=== PATIENT | female | born 1985 | race Caucasian/White ===

== ENCOUNTER 2017-01-20 14:17 | Emergency (ER) | payer MEDICAID, OTHER ==
[~2017-01-20] VITALS: Ht 160 cm; Wt 109.8 kg
[2017-01-20 14:19] VITALS: BP 148/89
--- NOTE | 2017-01-20 15:58 | NUR ---
Patient ambulated to bed 4 with family. RN evaluating patient at bedside.
--- NOTE | 2017-01-20 16:01 | NUR ---
31/F BIB FAMILY C/O RIGHT INDEX FINGER LACERATION x TODAY @ 1415. DENIES N/V/D; SKIN IS PINK/WARM/DRY; AAOX4 WITH EVEN AND STEADY GAIT; LUNGS CLEAR BL; HR EVEN AND REGULAR; PT DENIES ANY FEVER, CP, SOB, OR COUGH AT THIS TIME; PATIENT STATES PAIN OF 6/10 AT THIS TIME; VSS; PATIENT POSITIONED FOR COMFORT; HOB ELEVATED; BEDRAILS UP X2; BED DOWN. ER MD MADE AWARE OF PT STATUS.
[2017-01-20] MEDS ORDERED: NEOMYCIN/POLYMYXIN/BACITRACIN 0.9 GM/1 PKT TP ONE (16:49)
[2017-01-20 17:04] VITALS: BP 148/89
== END 2017-01-20 17:04 | disposition home or self-care (01) ==
LOC: MED 14:17
DX: S61.211A Laceration without foreign body of left index finger without damage to nail, initial encounter (principal); W45.8XXA Other foreign body or object entering through skin, initial encounter; Y93.G9 Activity, other involving cooking and grilling; Y92.89 Other specified places as the place of occurrence of the external cause; Y99.8 Other external cause status
CPT/HCPCS: 12001; 99283

== ENCOUNTER 2017-07-27 11:26 | Emergency (ER) | payer OTHER ==
[~2017-07-27] VITALS: Ht 165.1 cm; Wt 100.2 kg
[2017-07-27 11:42] VITALS: BP 136/77
--- NOTE | 2017-07-27 11:52 | NUR ---
PATIENT PRESENTS TO ED WITH c/o left 2nd/3rd digit injury s/p attempting to break fall by grabbing on rail before falling ;last night;swelling , discoloration, tenderness;skin intact, +2 radial pulse <3 sec cap refill;DENIES ANY MEDICAL HX;DENIES N/V/D; SKIN IS PINK/WARM/DRY; AAOX4 WITH EVEN AND STEADY GAIT; LUNGS CLEAR BL; HR EVEN AND REGULAR; PT DENIES ANY FEVER, CP, SOB, OR COUGH AT THIS TIME; PATIENT STATES PAIN OF 7/10 AT THIS TIME;PATIENT POSITIONED FOR COMFORT; HOB ELEVATED; BEDRAILS UP X2; BED DOWN. ER MD MADE AWARE OF PT STATUS.
--- NOTE | 2017-07-27 11:57 | NUR ---
DR POP EVALUATING PT
--- NOTE | 2017-07-27 12:36 | NUR ---
pt sitting on chair;no acute distress noted;will continue to monitor pt.
[2017-07-27 12:51] VITALS: BP 125/81
--- NOTE | 2017-07-27 12:51 | NUR ---
Patient discharged with v/s stable. Written and verbal after care instructions given and explained. Patient alert, oriented and verbalized understanding of instructions. Ambulatory with . All questions addressed prior to discharge. ID band removed. Patient advised to follow up with PMD. Rx of naproxen given. Patient educated on indication of medication including possible reaction and side effects. Opportunity to ask questions provided and answered.
== END 2017-07-27 12:51 | disposition home or self-care (01) ==
LOC: MED 11:26
DX: S63.91XA Sprain of unspecified part of right wrist and hand, initial encounter (principal); Z88.8 Allergy status to other drugs, medicaments and biological substances; W19.XXXA Unspecified fall, initial encounter; Y93.89 Activity, other specified; Y92.89 Other specified places as the place of occurrence of the external cause; Y99.8 Other external cause status
CPT/HCPCS: 73130; 99284

== ENCOUNTER 2017-11-04 15:01 | Emergency (ER) | payer OTHER ==
[~2017-11-04] VITALS: Ht 162.6 cm; Wt 95.5 kg
[2017-11-04 15:23] VITALS: BP 149/100
[2017-11-04] MEDS ORDERED: traMADol 50 MG TAB PO ONE (15:45)
[2017-11-04] MEDS ORDERED: KETOROLAC 30 MG/ML VIAL IM ONE (17:10)
[2017-11-04] MEDS ORDERED: HYDROcodone/APAP 5/325 MG 1 TAB TAB PO ONE (17:10)
[2017-11-04 18:35] VITALS: BP 145/97
== END 2017-11-04 18:37 | disposition home or self-care (01) ==
LOC: MED 15:01 → CANBEDREQ 16:02 → MED 18:37
DX: M54.5 Low back pain (principal); Z88.8 Allergy status to other drugs, medicaments and biological substances
CPT/HCPCS: 72110; 96372; 99284; J1885; 81002; 81025

== ENCOUNTER 2017-11-17 11:55 | Emergency (ER) | payer OTHER ==
[~2017-11-17] VITALS: Ht 165.1 cm; Wt 92.5 kg
[2017-11-17 12:23] VITALS: BP 140/79
[2017-11-17] MEDS ORDERED: methylPREDNISolone SS 125 MG in WATER STERILE 2 ML IV ONE (13:15)
[2017-11-17] MEDS ORDERED: ONDANSETRON 4 MG/2 ML VIAL IVP ONE (13:15)
[2017-11-17] MEDS ORDERED: MORPHINE SULFATE 4 MG/ML SYR IVP ONE ×2 (13:15→17:00)
[2017-11-17] MEDS ORDERED: methylPREDNISolone SS 125 MG/2 ML VIAL ONE (13:21)
[2017-11-17 13:50] LABS: BASOPHILS # (AUTO) 0.2 K/uL (0.00-0.22); BASOPHILS % (AUTO) 1.5 % (0.0-2.0); EOSINOPHILS # (AUTO) 0.2 K/uL (0-0.4); EOSINOPHILS % (AUTO) 1.4 % (0.0-4.0); HEMATOCRIT 35.7 % (36-48); LYMPHOCYTES # (AUTO) 4.5 K/uL (2.5-16.5); LYMPHOCYTES % (AUTO) 33.5 % (20.5-51.1); MEAN CORPUSCULAR HEMOGLOBIN 27 pg (27-31); MEAN CORPUSCULAR HGB CONC 34 g/dL (33-37); MEAN CORPUSCULAR VOLUME 80.8 fL (80-94); MONOCYTES % (AUTO) 7.3 % (1.7-9.3); NEUTROPHILS # (AUTO) 7.6 K/uL (1.8-7.7); NEUTROPHILS % (AUTO) 56.3 % (42.2-75.2); PLATELET COUNT (AUTO) 458 K/uL (140-450); RED BLOOD CELL COUNT(AUTO) 4.42 MIL/uL (4.20-5.40); WHITE BLOOD COUNT (AUTO) 13.5 K/uL (4.8-10.8)
[2017-11-17 14:03] LABS: PROTHROMBIN TIME 10.5 secs (10.8-13.4)
[2017-11-17 14:09] LABS: APPEARANCE,URINE CLEAR (CLEAR); BILIRUBIN,URINE NEGATIVE (NEGATIVE); BLOOD, URINE NEGATIVE (NEGATIVE); COLOR,URINE YELLOW (YELLOW); LEUKOCYTE ESTERASE ,URINE NEGATIVE (NEGATIVE); NITRITE, URINE NEGATIVE (NEGATIVE); PH,URINE 6.5 (5.0-9.0); UGLUCOSE NEGATIVE (NEGATIVE)
[2017-11-17 14:11] LABS: ALBUMIN 3.8 g/dL (3.4-5.0); ANION GAP 13.9 (8-16); CARBON DIOXIDE 27.5 mmol/L (21-32); CREATININE 0.8 mg/dL (0.6-1.3); POTASSIUM 3.4 mmol/L (3.5-5.1); TOTAL BILIRUBIN 0.5 mg/dL (0.0-1.0)
[2017-11-17] MEDS ORDERED: POTASSIUM CHLORIDE 10 MEQ TABER PO ONE (16:30)
[2017-11-17 18:30] VITALS: BP 108/73
== END 2017-11-17 18:30 | disposition short-term general hospital (02) ==
LOC: MED 11:55
DX: M54.12 Radiculopathy, cervical region (principal); M54.16 Radiculopathy, lumbar region; Z88.8 Allergy status to other drugs, medicaments and biological substances
CPT/HCPCS: 36415; 80053; 81003; 81025; 82550; 83605; 85025; 85610; 85651; 86140; 87040; 96374; 96375; 96376; 99285; J2270; J2405; J2930

== ENCOUNTER 2018-07-04 22:01 | Emergency (ER) | payer OTHER ==
[~2018-07-04] VITALS: Ht 162.6 cm; Wt 83.9 kg
[2018-07-04 22:02] VITALS: BP 156/91
--- NOTE | 2018-07-04 22:07 | NUR ---
PT AMBULATORY TO ER LOBBY W/ STEADY GAIT IN STABLE CONDITION.
--- NOTE | 2018-07-04 22:24 | NUR ---
PT RETURN FROM RAD TO ER ADINABY
--- NOTE | 2018-07-04 22:45 | NUR ---
PATIENT BIB W/C TO ER BED 2.
--- NOTE | 2018-07-04 22:48 | NUR ---
PT IS A 33 Y/O FEMALE WHO PRESENTS TO THE ED S/P FALL. PT STATES THAT IT HAPPENED THIS AMD AND REPORTS L ARM AND L KNEE PAIN. PT DENIES LOC, REPORTS 8/10 ACHING L ARM AND L KNEE PAIN. NO OBVIOUS TRAUMA OR DEFORMITY. PT AWAKE AND ALERT, RR EVEN/UNLABORED. PT REPOSITIONED FOR COMFORT, BED IN LOWEST POSITION. ER MD DR. PAPPAS NOTIFIED. WILL CONTINUE TO MONITOR.
[2018-07-04] MEDS ORDERED: HYDROcodone/APAP 5/325 MG 1 TAB TAB PO ONE (23:30)
[2018-07-04] MEDS ORDERED: KETOROLAC 30 MG/ML VIAL IM ONE (23:30)
--- NOTE | 2018-07-05 | NUR ---
PATIENT RESTING AT THIS TIME. NO SIGNS OF DISTRESS.
[2018-07-05 01:35] VITALS: BP 162/85
--- NOTE | 2018-07-05 01:35 | NUR ---
Patient discharged with v/s stable. Written and verbal after care instructions given and explained. Patient alert, oriented and verbalized understanding of instructions. Ambulatory with steady gait. All questions addressed prior to discharge. ID band removed. Patient advised to follow up with PMD. Rx of NAPROSYN 500MG AND NORCO 5MG-325MG given. Patient educated on indication of medication including possible reaction and side effects. Opportunity to ask questions provided and answered.
== END 2018-07-05 01:35 | disposition home or self-care (01) ==
LOC: MED 22:01
DX: S63.502A Unspecified sprain of left wrist, initial encounter (principal); S80.02XA Contusion of left knee, initial encounter; M25.561 Pain in right knee; Z88.8 Allergy status to other drugs, medicaments and biological substances; W18.09XA Striking against other object with subsequent fall, initial encounter; Y93.89 Activity, other specified; Y92.89 Other specified places as the place of occurrence of the external cause; Y99.8 Other external cause status
CPT/HCPCS: 29125; 73130; 73562; 96372; 99283; J1885; Q0092

== ENCOUNTER 2018-07-16 21:21 | Emergency (ER) | payer OTHER ==
[~2018-07-16] VITALS: Ht 165.1 cm; Wt 81.6 kg
[2018-07-16 21:34] VITALS: BP 128/88
--- NOTE | 2018-07-16 21:34 | NUR ---
PT PRESENTS TO ED WITH RUQ ABD PAIN RADIATING TO LOWER BACK WITH N/V/D X4 DAYS. 05/13 PAIN. PT STATES FEELING BLOATED. X4 QUADRANT BOWEL SOUNDS PRESENT. A&OX4. VSS. POSITIONED IN BED FOR COMFORT. PT DESNIES PAST MEDICAL HX. ER MD AWARE. CONTINUE TO MONITOR.
--- NOTE | 2018-07-16 21:34 | NUR ---
TO BED # 1 AMB, REPORT GIVEN TO OSCAR SAAVEDRA
--- NOTE | 2018-07-16 21:58 | NUR ---
Dr. Shen evaluating patient at bedside.
[2018-07-16] MEDS ORDERED: KETOROLAC 30 MG/ML VIAL IVP ONE (22:00)
[2018-07-16] MEDS ORDERED: ONDANSETRON 4 MG/2 ML VIAL IVP ONE (22:00)
[2018-07-16] MEDS ORDERED: NACL 0.9% 1,000 ML IV SCH (22:00)
[2018-07-16 22:26] LABS: BASOPHILS % (AUTO) 0.4 % (0.0-2.0); EOSINOPHILS # (AUTO) 0.2 K/uL (0-0.4); EOSINOPHILS % (AUTO) 1.5 % (0.0-4.0); HEMATOCRIT 36.9 % (36-48); LYMPHOCYTES # (AUTO) 4.1 K/uL (2.5-16.5); LYMPHOCYTES % (AUTO) 40.3 % (20.5-51.1); MEAN CORPUSCULAR HEMOGLOBIN 27 pg (27-31); MEAN CORPUSCULAR HGB CONC 33 g/dL (33-37); MEAN CORPUSCULAR VOLUME 82.3 fL (80-94); MONOCYTES # (AUTO) 1.2 K/uL (0.8-1.0); MONOCYTES % (AUTO) 12.3 % (1.7-9.3); NEUTROPHILS # (AUTO) 4.6 K/uL (1.8-7.7); NEUTROPHILS % (AUTO) 45.5 % (42.2-75.2); PLATELET COUNT (AUTO) 362 K/uL (140-450); RED BLOOD CELL COUNT(AUTO) 4.48 MIL/uL (4.20-5.40); RED CELL DISTRIBUTION WIDTH 13.9 % (11.6-13.7); WHITE BLOOD COUNT (AUTO) 10.2 K/uL (4.8-10.8)
[2018-07-16 22:33] LABS: ANION GAP 13.9 (8-16); CARBON DIOXIDE 25.3 mmol/L (21-32); CREATININE 0.7 mg/dL (0.6-1.3); POTASSIUM 3.2 mmol/L (3.5-5.1)
[2018-07-16 22:38] LABS: APPEARANCE,URINE SL CLOUDY (CLEAR); BILIRUBIN,URINE NEGATIVE (NEGATIVE); BLOOD, URINE TRACE-L (NEGATIVE); COLOR,URINE YELLOW (YELLOW); LEUKOCYTE ESTERASE ,URINE NEGATIVE (NEGATIVE); NITRITE, URINE NEGATIVE (NEGATIVE); UGLUCOSE NEGATIVE (NEGATIVE)
[2018-07-16 22:39] LABS: CALCIUM OXALATE CRYSTALS,UR 30-50 /HPF (None Seen); RBC,URINE 0-5 (RARE) /HPF (0-5); WBC,URINE 0-5 (RARE) /HPF (0-5)
[2018-07-16 22:39] LABS: ALBUMIN 2.9 g/dL (3.4-5.0); TOTAL BILIRUBIN 0.1 mg/dL (0.0-1.0)
[2018-07-16] MEDS ORDERED: MORPHINE SULFATE 4 MG/ML SYR IVP ONE (23:20)
[2018-07-16 23:56] VITALS: BP 132/76
--- NOTE | 2018-07-16 23:56 | NUR ---
Patient discharged with v/s stable. Written and verbal after care instructions given and explained. Patient alert, oriented and verbalized understanding of instructions. Ambulatory with steady gait. All questions addressed prior to discharge. ID band removed. Patient advised to follow up with PMD. Rx of Zofran, Dahlgren, and Motrin given. Patient educated on indication of medication including possible reaction and side effects. Opportunity to ask questions provided and answered.
== END 2018-07-16 23:56 | disposition home or self-care (01) ==
LOC: MED 21:21
DX: K80.20 Calculus of gallbladder without cholecystitis without obstruction (principal); Z88.8 Allergy status to other drugs, medicaments and biological substances
CPT/HCPCS: 36415; 76705; 80053; 81001; 81025; 83690; 85025; 87086; 96361; 96374; 96375; 99284; J1885; J2270; J2405; Q0092

== ENCOUNTER 2019-03-08 21:52 | Emergency (ER) | payer OTHER ==
[~2019-03-08] VITALS: Ht 162.6 cm; Wt 90.7 kg
[2019-03-08 22:15] VITALS: BP 143/65
--- NOTE | 2019-03-08 22:25 | NUR ---
33/F CC L SIDED NUMBNESS. ALLERGIES CARISOPRADOL. HX DM, FIBROMIALGIA, RA, SCIATICA. AOX4. ABLE TO VERBALIZE NEEDS. BED IN LOWEST POSITION. WILL CONTINUE TO OBSERVE.
--- NOTE | 2019-03-08 22:25 | NUR ---
PT TAKEN TO BED 4 VIA WC.
--- NOTE | 2019-03-08 22:26 | NUR ---
PT TAKEN TO BED 4
[2019-03-08] MEDS ORDERED: NACL 0.9% 1,000 ML IV ONE (22:35)
[2019-03-08] MEDS ORDERED: LORazepam 2 MG/ML VIAL IVP ONE (22:35)
[2019-03-08 23:01] LABS: ANION GAP 14.6 (8-16); BASOPHILS # (AUTO) 0.1 K/uL (0.00-0.22); CARBON DIOXIDE 27.2 mmol/L (21-32); EOSINOPHILS # (AUTO) 0.1 K/uL (0-0.4); EOSINOPHILS % (AUTO) 0.4 % (0.0-4.0); HEMATOCRIT 35.7 % (36-48); HEMOGLOBIN 11.7 g/dL (12.0-16.0); LYMPHOCYTES # (AUTO) 4.8 K/uL (2.5-16.5); LYMPHOCYTES % (AUTO) 38.8 % (20.5-51.1); MEAN CORPUSCULAR HEMOGLOBIN 27 pg (27-31); MEAN CORPUSCULAR HGB CONC 33 g/dL (33-37); MEAN CORPUSCULAR VOLUME 81.1 fL (80-94); MONOCYTES # (AUTO) 1.3 K/uL (0.8-1.0); MONOCYTES % (AUTO) 10.8 % (1.7-9.3); PLATELET COUNT (AUTO) 435 K/uL (140-450); POTASSIUM 3.8 mmol/L (3.5-5.1); RED CELL DISTRIBUTION WIDTH 15.3 % (11.6-13.7); WHITE BLOOD COUNT (AUTO) 12.3 K/uL (4.8-10.8)
[2019-03-08 23:07] LABS: ALBUMIN 4.1 g/dL (3.4-5.0); TOTAL BILIRUBIN 0.7 mg/dL (0.0-1.0)
--- NOTE | 2019-03-09 00:10 | NUR ---
COVERING PRIMARY RN FOR LUNCH RELIEF. ASSUMED TEMPORARY CARE OF PT.
--- NOTE | 2019-03-09 00:11 | NUR ---
SPOKE WITH SISTER, NISA. INFORMED HER THAT PT WAS READY FOR DC. ETA 10 MINS.
--- NOTE | 2019-03-09 00:35 | NUR ---
Patient discharged with v/s stable. Written and verbal after care instructions given and explained. Patient alert, oriented and verbalized understanding of instructions.W/C ASSIST TO CAR WITH NISA (SISTER) All questions addressed prior to discharge. ID band removed. Patient advised to follow up with PMD. Rx of XANAX given. Patient educated on indication of medication including possible reaction and side effects. Opportunity to ask questions provided and answered.
[2019-03-09 00:36] VITALS: BP 143/65
== END 2019-03-09 00:35 | disposition home or self-care (01) ==
LOC: MED 21:52
DX: R06.4 Hyperventilation (principal); Z88.6 Allergy status to analgesic agent
CPT/HCPCS: 36415; 80053; 85025; 96374; 99283; J2060; J7030

== ENCOUNTER 2019-06-11 19:50 | Emergency (ER) | payer OTHER ==
[~2019-06-11] VITALS: Ht 162.6 cm; Wt 81.2 kg
[2019-06-11 19:55] VITALS: BP 144/88
--- NOTE | 2019-06-11 19:57 | NUR ---
TO LOBBY A/W BED AMBULATORY
--- NOTE | 2019-06-11 21:52 | NUR ---
PT AMBULATED TO BED 11
[2019-06-11] MEDS ORDERED: BACITRACIN OINT 500 UNITS/GM PKT TP ONE (22:45)
[2019-06-11] MEDS ORDERED: KETOROLAC 30 MG/ML VIAL IM ONE (22:45)
[2019-06-11] MEDS ORDERED: DIAZEPAM 5 MG TAB PO ONE (22:45)
--- NOTE | 2019-06-11 22:51 | NUR ---
SOAKED LEFT TOE IN WARM WATER AND BETADYIN
--- NOTE | 2019-06-11 23:36 | NUR ---
APPLIED BACITRACIN AND BANDAID TO LEFT GREATER TOE
--- NOTE | 2019-06-11 23:39 | NUR ---
APPLIED ORTHO SHOE TO LEFT FOOT, SHOE WAS SIZED AND CSM WAS CHECKED BEFORE AND AFTER FITTIED, SHOE SIZE WOMENS LARGE
--- NOTE | 2019-06-11 23:40 | NUR ---
PT GIVEN PROPER INSTRUCTIONS ON USE OF CRUTCHES. PT CRUTCHES FITTED TO PT HT AND ARM LENGTH, WITH 2INCH SPACE UNDER ARMPITS AND HANDLES LOCATED AT PT WRISTS AT REST. PT GIVEN INSTRUCTIONS ON MOVING WITH CRUTCHES, INCLUDING SITTING/STANDING, ASCENDING/DESCENDING STAIRS AND WALKING. PT DEMONSTRATING SAFE USE FOR APX. 40 FT, PT STATED SHE FELT COMFORTABLE WITH USE.
[2019-06-11 23:45] VITALS: BP 144/88
--- NOTE | 2019-06-11 23:45 | NUR ---
PT DISCHARGED WITH PAPERWORK. RX JOSE CONNELLY. EDUCATED PT REGARDING MEDICATIONS AND S/E. EDUCATED PT REGARDING D/C DIAGNOSIS AND INSTRUCTIONS. PT VERBALIZED UNDERSTANDING OF TEACHING. PROVIDED PT WITH CRUTCHES; HARSHIL YA EDUCATED PT REGARDING USE OF CRUTCHES. TOLD PT TO FOLLOW UP WITH PCP AND WHEN TO RETURN TO ED. PT VSS. ALL QUESTIONS ANSWERED.
--- NOTE | 2019-06-12 00:10 | NUR ---
Janay leon in [facility] - 06/12/19 at 0013 by JENNYFER APPLIED ORTHO SHOE TO LEFT FOOT, SHOE WAS SIZED AND CSM WAS CHECKED BEFORE AND AFTER FITTIED, SHOE SIZE WOMENS LARGE
== END 2019-06-11 23:45 | disposition home or self-care (01) ==
LOC: MED 19:50
DX: S92.425A Nondisplaced fracture of distal phalanx of left great toe, initial encounter for closed fracture (principal); S39.012A Strain of muscle, fascia and tendon of lower back, initial encounter; E11.9 Type 2 diabetes mellitus without complications; Z98.890 Other specified postprocedural states; Z88.6 Allergy status to analgesic agent; W01.0XXA Fall on same level from slipping, tripping and stumbling without subsequent striking against object, initial encounter; Y93.89 Activity, other specified; Y92.89 Other specified places as the place of occurrence of the external cause; Y99.8 Other external cause status
CPT/HCPCS: 73610; 73630; 73660; 96372; 99283; J1885; Q0092

== ENCOUNTER 2019-09-07 18:51 | Emergency (ER) | payer OTHER ==
[~2019-09-07] VITALS: Ht 167.6 cm; Wt 96.6 kg
[2019-09-07 19:03] VITALS: BP 147/88
--- NOTE | 2019-09-07 19:19 | NUR ---
PT C/O LEFT ANKLE PAIN AFTER STEPPING IN DITCH. PT STATES SHE FELT A "POP" IN THE BACK OF HER ANKLE. PT CURRENTLY SITTING IN WHEELCHAIR. PT ABLE TO MOVE TOES, PULSE INTACT, SENSORY INTACT AND COLOR NORMAL. NO SWELLING NOTED. X-RAY AT BEDSIDE. WAITING FOR PROVIDER TO SEE PT. DENIES N/V/D; SKIN IS PINK/WARM/DRY; AAOX4; LUNGS CLEAR BL; HR EVEN AND REGULAR; PT DENIES ANY FEVER, CP, SOB, OR COUGH AT THIS TIME; PATIENT STATES PAIN OF 10/10 AT THIS TIME; VSS; PATIENT POSITIONED FOR COMFORT; PT IN WHEELCHAIR ER MD MADE AWARE OF PT STATUS.
--- NOTE | 2019-09-07 20:01 | NUR ---
Patient discharged with v/s stable. Written and verbal after care instructions given and explained. Patient alert, oriented and verbalized understanding of instructions. Wheel Chair Assisted with to car. All questions addressed prior to discharge. ID band removed. Patient advised to follow up with PMD. Rx of MOTRIN given. Patient educated on indication of medication including possible reaction and side effects. Opportunity to ask questions provided and answered.
[2019-09-07 20:02] VITALS: BP 134/67
== END 2019-09-07 20:01 | disposition home or self-care (01) ==
LOC: MED 18:51
DX: S93.402A Sprain of unspecified ligament of left ankle, initial encounter (principal); E11.9 Type 2 diabetes mellitus without complications; Z88.8 Allergy status to other drugs, medicaments and biological substances; X58.XXXA Exposure to other specified factors, initial encounter; Y93.89 Activity, other specified; Y92.89 Other specified places as the place of occurrence of the external cause; Y99.8 Other external cause status
CPT/HCPCS: 73610; 99283; Q0092

== ENCOUNTER 2020-08-13 15:34 | Emergency (ER) | payer OTHER ==
[~2020-08-13] VITALS: Ht 162.6 cm; Wt 94.8 kg
[2020-08-13 16:28] VITALS: BP 130/87
[2020-08-13 16:39] VITALS: BP 130/87
--- NOTE | 2020-08-13 16:39 | NUR ---
PATIENT LEFT WITHOUT BEING SEEN BY DR. LEDEZMA. NO FURTHER CARE PROVIDED FOR PATIENT.
== END 2020-08-13 18:47 | disposition left against medical advice (07) ==
LOC: MED 15:34
DX: R50.9 Fever, unspecified (principal); R06.02 Shortness of breath; M54.5 Low back pain; Z53.21 Procedure and treatment not carried out due to patient leaving prior to being seen by health care provider

== ENCOUNTER 2020-11-19 17:23 | Emergency (ER) | payer OTHER ==
[~2020-11-19] VITALS: Ht 162.6 cm; Wt 95.3 kg
[2020-11-19 17:29] VITALS: BP 152/81
[2020-11-19] MEDS ORDERED: KETOROLAC 30 MG/ML VIAL IM ONE (17:40)
[2020-11-19] MEDS ORDERED: IBUP-2213 PO (18:14)
[2020-11-19 18:19] VITALS: BP 152/81
== END 2020-11-19 18:19 | disposition home or self-care (01) ==
LOC: MED 17:23
DX: S93.402A Sprain of unspecified ligament of left ankle, initial encounter (principal); E11.9 Type 2 diabetes mellitus without complications; Z79.899 Other long term (current) drug therapy; W19.XXXA Unspecified fall, initial encounter; Y93.89 Activity, other specified; Y92.89 Other specified places as the place of occurrence of the external cause; Y99.8 Other external cause status
CPT/HCPCS: 73610; 96372; 99283; J1885

== ENCOUNTER 2021-01-25 23:45 | Emergency (ER) | payer OTHER ==
[~2021-01-25] VITALS: Ht 162.6 cm; Wt 98.4 kg
[~2021-01-25 23:45] MED LIST: IBUP-2213 PO
[2021-01-25 23:50] VITALS: BP 116/70
--- NOTE | 2021-01-26 00:25 | NUR ---
attempted to call pt x 3 times at lobby and outside. NA
--- NOTE | 2021-01-26 00:28 | NUR ---
PATIENT LEFT WITHOUT BEING SEEN BY DR. Ruano. NO FURTHER CARE PROVIDED FOR PATIENT.
== END 2021-01-26 00:27 | disposition left against medical advice (07) ==
LOC: MED 23:45
DX: K08.89 Other specified disorders of teeth and supporting structures (principal); Z53.21 Procedure and treatment not carried out due to patient leaving prior to being seen by health care provider

== ENCOUNTER 2021-03-28 23:57 | Emergency (ER) | payer OTHER ==
[~2021-03-28] VITALS: Ht 165.1 cm; Wt 100.7 kg
[2021-03-29 00:29] VITALS: BP 142/67
--- NOTE | 2021-03-29 00:34 | NUR ---
AMBULATED TO LOBBY TO A/W BED
[2021-03-29] MEDS ORDERED: ONDANSETRON 4 MG ODT PO ONE (00:55)
[2021-03-29] MEDS ORDERED: HYDROcodone/APAP 5/325 MG 1 TAB TAB PO ONE (00:55)
[2021-03-29] MEDS ORDERED: CEPH-588 PO (00:58)
[2021-03-29] MEDS ORDERED: IBUP-2213 PO (01:05)
[2021-03-29 01:12] VITALS: BP 142/67
== END 2021-03-29 01:12 | disposition home or self-care (01) ==
LOC: MED 23:57
DX: K08.89 Other specified disorders of teeth and supporting structures (principal); L08.9 Local infection of the skin and subcutaneous tissue, unspecified; E11.9 Type 2 diabetes mellitus without complications; Z79.899 Other long term (current) drug therapy; Z88.8 Allergy status to other drugs, medicaments and biological substances
CPT/HCPCS: 99283; Q0162

== ENCOUNTER 2021-06-10 21:00 | Emergency (ER) | payer OTHER ==
[~2021-06-10] VITALS: Ht 162.6 cm; Wt 99.8 kg
[~2021-06-10 21:00] MED LIST changes: +CEPH-588 PO
[2021-06-10 21:12] VITALS: BP 141/85
--- NOTE | 2021-06-10 21:18 | NUR ---
pt to a/w tent for evaluation
--- NOTE | 2021-06-10 21:35 | NUR ---
DEB GONZALEZ COLLECTED AND TAKEN TO LAB.
[2021-06-11] MEDS ORDERED: IBUP-2213 PO (00:17)
[2021-06-11] MEDS ORDERED: PRED20TA5 PO (00:17)
[2021-06-11] MEDS ORDERED: ONDA8TAB87 PO (00:17)
--- NOTE | 2021-06-11 00:29 | NUR ---
Patient discharged with v/s stable. Written and verbal after care instructions given and explained. Patient alert, oriented and verbalized understanding of instructions. Ambulatory with steady gait. All questions addressed prior to discharge. ID band removed. Patient advised to follow up with PMD. Rx of PREDNISONE, ZOFRAN,MOTRIN given. Patient educated on indication of medication including possible reaction and side effects. Opportunity to ask questions provided and answered.
== END 2021-06-11 00:29 | disposition home or self-care (01) ==
LOC: MED 21:00
DX: R05.9 Cough, unspecified (principal); Z20.822 Contact with and (suspected) exposure to COVID-19; R07.89 Other chest pain; R50.9 Fever, unspecified; E11.9 Type 2 diabetes mellitus without complications; Z88.1 Allergy status to other antibiotic agents; Z88.2 Allergy status to sulfonamides; Z79.899 Other long term (current) drug therapy; Z98.890 Other specified postprocedural states
CPT/HCPCS: 71045; 99284; U0003

== ENCOUNTER 2021-06-17 21:05 | Emergency (ER) | payer OTHER ==
[~2021-06-17] VITALS: Ht 162.6 cm; Wt 99.3 kg
[~2021-06-17 21:05] MED LIST changes: +ONDA8TAB87 PO; +PRED20TA5 PO
[2021-06-17 21:26] VITALS: BP 111/74
--- NOTE | 2021-06-17 21:32 | NUR ---
PATIENT WAITING IN TENT
[2021-06-17] MEDS ORDERED: ALBUTEROL SULFATE/IPRATROPIU 3 ML SOL IH ONE (21:35)
--- NOTE | 2021-06-17 21:39 | NUR ---
CALLED FOR RT
[2021-06-17] MEDS ORDERED: PRON INH (23:07)
[2021-06-17] MEDS ORDERED: NEBU1KIT2 MC (23:07)
--- NOTE | 2021-06-17 23:28 | NUR ---
PATIENT ABLE TO AMBULATE WITH STEADY WITHOUT DESATURATING. PATIENT VOICED, "THAT TREATMENT MADE ME FEEL A LOT BETTER AND OPENED UP". ERMD MADE AWARE
[2021-06-17 23:33] VITALS: BP 120/87
--- NOTE | 2021-06-17 23:33 | NUR ---
Patient discharged with v/s stable. Written and verbal after care instructions given and explained. Patient alert, oriented and verbalized understanding of instructions. Ambulatory with steady gait. All questions addressed prior to discharge. ID band removed. Patient advised to follow up with PMD. Rx of A.I.R.S. NEBULIZER, ALBUTEROL SULFATE given. Patient educated on indication of medication including possible reaction and side effects. Opportunity to ask questions provided and answered.
== END 2021-06-17 23:33 | disposition home or self-care (01) ==
LOC: MED 21:05
DX: U07.1 COVID-19 (principal); J12.82 Pneumonia due to coronavirus disease 2019; E11.9 Type 2 diabetes mellitus without complications; Z79.899 Other long term (current) drug therapy; Z88.2 Allergy status to sulfonamides; Z88.8 Allergy status to other drugs, medicaments and biological substances
CPT/HCPCS: 71045; 93005; 94640; 99283; Q0092

== ENCOUNTER 2021-06-19 01:35 | Emergency (ER) | payer OTHER ==
[~2021-06-19] VITALS: Ht 165.1 cm; Wt 99.3 kg
[~2021-06-19 01:35] MED LIST changes: +NEBU1KIT2 MC; +PRON INH
[2021-06-19 01:45] VITALS: BP 120/72
--- NOTE | 2021-06-19 02:39 | NUR ---
PT CALLED AT THIS TIME BY NURSE AND ERMD, NO ANSWER IN LOBBY OR OUTSIDE.
--- NOTE | 2021-06-19 02:39 | NUR ---
ATTEMPTED TO FIND PATIENT, NO LONGER IN LOBBY OR TENT. PATIENT ELOPED FROM FACILITY. DISCHARGE INSTRUCTIONS NOT GIVEN TO PATIENT. DR. BECKER NOTIFIED.
--- NOTE | 2021-06-19 02:40 | NUR ---
PATIENT LEFT WITHOUT BEING SEEN BY DR. BECKER. NO FURTHER CARE PROVIDED FOR PATIENT.
== END 2021-06-19 02:40 | disposition left against medical advice (07) ==
LOC: MED 01:35
DX: Z53.21 Procedure and treatment not carried out due to patient leaving prior to being seen by health care provider (principal)

== ENCOUNTER 2022-01-17 01:19 | Emergency (ER) | payer OTHER ==
[~2022-01-17] VITALS: Ht 162.6 cm; Wt 98.0 kg
[2022-01-17 01:40] VITALS: BP 146/106
--- NOTE | 2022-01-17 01:43 | NUR ---
TO LOBBY A/W BED AMBULATORY
--- NOTE | 2022-01-17 02:51 | NUR ---
Dr. Garcia examining patient.
--- NOTE | 2022-01-17 03:21 | NUR ---
PT TAKEN TO RADIOLOGY
--- NOTE | 2022-01-17 03:22 | NUR ---
36 Y/O FEMALE BIBS FROM HOME, C/O RT ELBOW PAIN AT 1830HOURS. PT STATES SHE WAS AT THE STORE PUTTING THINGS IN BASKET, NOW HER SHOULDER WITH PAIN 02/10. CMS INTACT. NO OBVIOUS DEFORMITY OR TRAUMA NOTED. A/OX4, GCS-15; AMBULATORY; UNLABORED BREATHING. ALL: SULFA
[2022-01-17] MEDS ORDERED: NAPR-54 PO (05:22)
[2022-01-17 05:51] VITALS: BP 132/92
--- NOTE | 2022-01-17 05:52 | NUR ---
Patient discharged with v/s stable. Written and verbal after care instructions given and explained. Patient alert, oriented and verbalized understanding of instructions. Ambulatory with steady gait. All questions addressed prior to discharge. ID band removed. Patient advised to follow up with PMD. Rx of naprosyn given. Patient educated on indication of medication including possible reaction and side effects. Opportunity to ask questions provided and answered. a/ox4, vss, ambulatory, unlabored breathing, and calm demenaor.
== END 2022-01-17 05:52 | disposition home or self-care (01) ==
LOC: MED 01:19
DX: S50.01XA Contusion of right elbow, initial encounter (principal); W23.0XXA Caught, crushed, jammed, or pinched between moving objects, initial encounter; Y93.89 Activity, other specified; Y92.89 Other specified places as the place of occurrence of the external cause; Y99.8 Other external cause status
CPT/HCPCS: 73030; 73080; 99284

== ENCOUNTER 2022-03-26 13:51 | Emergency (ER) | payer OTHER ==
[~2022-03-26 13:51] MED LIST changes: +NAPR-54 PO
--- NOTE | 2022-03-26 14:07 | NUR ---
CALLED X 1. NO SHOW. Addendum: 03/26/22 at 1522 by [facility] PATIENT LEFT WITHOUT BEING SEEN BY DR. DR VALENZUELA. NO FURTHER CARE PROVIDED FOR PATIENT.
--- NOTE | 2022-03-26 14:12 | NUR ---
CALLED [phone], NO ANSWERING.
== END 2022-03-26 14:07 | disposition left against medical advice (07) ==
LOC: MED 13:51
DX: R10.9 Unspecified abdominal pain (principal); Z53.21 Procedure and treatment not carried out due to patient leaving prior to being seen by health care provider

== ENCOUNTER 2024-02-24 23:10 | Emergency (ER) | payer OTHER ==
[~2024-02-24] VITALS: Ht 160 cm; Wt 104.3 kg
[~2024-02-24 23:10] MED LIST changes: +NAPR-337 PO; -NAPR-54 PO
[2024-02-24 23:26] VITALS: BP 147/85; PULSE 116; RESP 20; TEMP 97.9; O2SAT 98
[2024-02-25 00:08] LABS: BASOPHILS # (AUTO) 0.1 K/uL (0.00-0.22); BASOPHILS % (AUTO) 0.7 % (0.0-2.0); EOSINOPHILS # (AUTO) 0.2 K/uL (0-0.4); EOSINOPHILS % (AUTO) 1.6 % (0.0-4.0); HEMATOCRIT 31.4 % (36-48); HEMOGLOBIN 10.1 g/dL (12.0-16.0); LYMPHOCYTES # (AUTO) 4.4 K/uL (2.5-16.5); LYMPHOCYTES % (AUTO) 31.6 % (20.5-51.1); MEAN CORPUSCULAR HEMOGLOBIN 25 pg (27-31); MEAN CORPUSCULAR HGB CONC 32 g/dL (33-37); MONOCYTES # (AUTO) 1.3 K/uL (0.8-1.0); MONOCYTES % (AUTO) 9.1 % (1.7-9.3); NEUTROPHILS # (AUTO) 7.9 K/uL (1.8-7.7); PLATELET COUNT (AUTO) 488 K/uL (140-450); RED BLOOD CELL COUNT(AUTO) 4.13 MIL/uL (4.20-5.40); WHITE BLOOD COUNT (AUTO) 13.9 K/uL (4.8-10.8)
[2024-02-25 00:20] LABS: ANION GAP 12.1 (8-16); CALCIUM 9.1 mg/dL (8.5-10.1); CARBON DIOXIDE 29.4 mmol/L (21-32); CREATININE 0.9 mg/dL (0.6-1.3); POTASSIUM 3.5 mmol/L (3.5-5.1)
[2024-02-25 00:22] LABS: INR 0.99 (0.8-1.2); PARTIAL THROMBOPLASTIN TIME 27.1 secs (22-35.6); PROTHROMBIN TIME 10.4 secs (10.8-13.4)
== END 2024-02-25 00:59 | disposition left against medical advice (07) ==
LOC: MED 23:10
DX: N93.9 Abnormal uterine and vaginal bleeding, unspecified (principal); Z53.21 Procedure and treatment not carried out due to patient leaving prior to being seen by health care provider
CPT/HCPCS: 36415; 80048; 81025; 85025; 85610; 85730